=== PATIENT | male | born 1950 | race Caucasian/White ===

== ENCOUNTER 2023-04-14 17:18 | Inpatient (IN) | payer MEDICARE, OTHER ==
[~2023-04-14] VITALS: Ht 170.2 cm; Wt 82.3 kg
[2023-04-14] MEDS ORDERED: ISOVUE-370 76% 100ML VIAL As Ordered ONE (17:27)
[2023-04-14 17:53] LABS: BASO % 0.3 % (0.0-1.0); EOS # 0.1 10^3/uL (0.0-0.5); EOS % 1.2 % (0.0-3.0); HEMATOCRIT 42.3 % (42.0-52.0); HEMOGLOBIN 14.6 g/dl (13.5-17.5); LYMPH # 0.9 10^3/uL (1.5-5.0); LYMPH % 15.7 % (24.0-44.0); MEAN CORPUSCULAR HEMOGLOBIN 30.7 pg (27.0-33.0); MEAN CORPUSCULAR HGB CONC 34.5 g/dl (32.0-36.5); MEAN CORPUSCULAR VOLUME 89.1 fl (80.0-96.0); MONO # 0.5 10^3/uL (0.0-0.8); MONO % 8.4 % (2.0-8.0); NEUTROPHILS # 4.3 10^3/uL (1.5-8.5); NEUTROPHILS % 74.1 % (36.0-66.0); PLATELET COUNT, AUTOMATED 151 10^3/uL (150-450); RED BLOOD COUNT 4.75 10^6/uL (4.30-6.10); WHITE BLOOD COUNT 5.9 10^3/uL (4.0-10.0)
[2023-04-14 18:04] LABS: INR 0.94; PROTHROMBIN TIME 12.8 SECONDS (12.5-14.5)
[2023-04-14] MEDS ORDERED: TENECTEPLASE 50 MG KIT (TNKase) IVP ONE (18:20)
[2023-04-14 18:21] LABS: CK-MB VALUE MASS 1.1 NG/ML (<3.6)
[2023-04-14 18:22] LABS: CALCIUM LEVEL 9.1 MG/DL (8.3-10.6); CREATININE FOR GFR 1.4 MG/DL (0.70-1.30); GLOMERULAR FILTRATION RATE 52.9 (>42)
[2023-04-14 18:26] LABS: MB/CK RELATIVE INDEX 1.13 (< OR =4)
[2023-04-14] MEDS ORDERED: SODIUM CHLORIDE 0.9% INJ 10 ML SYR IV ONE ×2 (18:30)
[2023-04-14 18:34] LABS: RSV AMPLIFICATION NEGATIVE (NEGATIVE)
[2023-04-14] MEDS ORDERED: ATOR40TA75 PO (18:43)
[2023-04-14] MEDS ORDERED: AMLO1TAB25 PO (18:43)
[2023-04-14] MEDS ORDERED: APPL300T4 PO (18:43)
[2023-04-14] MEDS ORDERED: CARV3.12 PO (18:43)
[2023-04-14] MEDS ORDERED: LEVO100T5 PO (18:43)
[2023-04-14] MEDS ORDERED: LISI10TA22 PO (18:43)
[2023-04-14] MEDS ORDERED: BIOT1CAP2 PO (18:43)
[2023-04-14] MEDS ORDERED: HOME MED LIST COMPLETE! XX SCH (20:35)
[2023-04-14] MEDS: D5W/0.9% SODIUM CHLORIDE 1,000 ML IV SCH (20:35)
[2023-04-14 23:10] VITALS: BP 157/79; TEMP 101.5; O2SAT 95
[2023-04-14 23:30] VITALS: BP 144/76; O2SAT 94
[2023-04-14] MEDS: ATORVASTATIN 20 MG TAB PO SCH (23:42)
[2023-04-14 23:45] VITALS: BP 141/74; O2SAT 95
[2023-04-15] VITALS (31 sets, daily range): BP systolic 106–171; BP diastolic 53–79; TEMP 97.9–99.5; O2SAT 93–98
[2023-04-15] MEDS ORDERED: ACETAMINOPHEN 1000MG 100ML IV BAG IV ONE (02:00)
[2023-04-15 05:03] LABS: HEMOGLOBIN A1c 5.1 % (4.0-6.0)
[2023-04-15 05:11] LABS: INR 0.99; PROTHROMBIN TIME 13.3 SECONDS (12.5-14.5)
[2023-04-15 05:29] LABS: CHOLESTEROL RISK RATIO 4.05 (<5); HDL CHOLESTEROL 25.4 MG/DL (>40); LDL CHOLESTEROL 55.4 MG/DL (<100); NON-HDL-C 77.6 MG/DL
[2023-04-15] MEDS: ATORVASTATIN 20 MG TAB PO SCH ×2 (06:05→20:41)
[2023-04-15] MEDS: LEVOTHYROXINE 100MCG TABLET (0.1MG) PO SCH (06:05)
[2023-04-15] MEDS: D5W/0.9% SODIUM CHLORIDE 1,000 ML IV SCH ×2 (09:55→18:14)
[2023-04-16] VITALS (7 sets, daily range): BP systolic 129–158; BP diastolic 63–86; TEMP 97.7–98.5; O2SAT 95–97
[2023-04-16] MEDS: LEVOTHYROXINE 100MCG TABLET (0.1MG) PO SCH (05:29)
[2023-04-16] MEDS: ASPIRIN 81MG ENTERIC TABLET PO SCH (08:40)
[2023-04-16 08:52] LABS: HEMATOCRIT 40.4 % (42.0-52.0); HEMOGLOBIN 13.7 g/dl (13.5-17.5); MEAN CORPUSCULAR HEMOGLOBIN 30.9 pg (27.0-33.0); MEAN CORPUSCULAR HGB CONC 33.9 g/dl (32.0-36.5); MEAN CORPUSCULAR VOLUME 91.2 fl (80.0-96.0); PLATELET COUNT, AUTOMATED 150 10^3/uL (150-450); RED BLOOD COUNT 4.43 10^6/uL (4.30-6.10); WHITE BLOOD COUNT 4.9 10^3/uL (4.0-10.0)
[2023-04-16] MEDS: NS 1,000 ML IV SCH ×2 (09:10→19:39)
[2023-04-16 09:13] LABS: BLOOD UREA NITROGEN 22 MG/DL (9-23); CALCIUM LEVEL 9.2 MG/DL (8.3-10.6); CARBON DIOXIDE LEVEL 25 MMOL/L (20-31); CHLORIDE LEVEL 108 MMOL/L (98-107); CREATININE FOR GFR 1.25 MG/DL (0.70-1.30); GLOMERULAR FILTRATION RATE > 60.0 (>42); GLUCOSE, FASTING 104 MG/DL (74-106); POTASSIUM SERUM 3.9 MMOL/L (3.5-5.1); SODIUM LEVEL 141 MMOL/L (136-145)
[2023-04-16] MEDS: ATORVASTATIN 20 MG TAB PO SCH (20:36)
[2023-04-17] VITALS: BP 137/60; TEMP 98.5; O2SAT 96
[2023-04-17 04:00] VITALS: BP 112/59; TEMP 98.6; O2SAT 97
[2023-04-17] MEDS: LEVOTHYROXINE 100MCG TABLET (0.1MG) PO SCH (05:54)
[2023-04-17] MEDS: ASPIRIN 81MG ENTERIC TABLET PO SCH (08:11)
[2023-04-17 08:14] VITALS: BP 135/70; TEMP 98; O2SAT 97
[2023-04-17] MEDS ORDERED: ASPI81TAEC PO (10:44)
[2023-04-17] MEDS ORDERED: ATOR80TA59 PO (10:44)
== END 2023-04-17 12:15 | disposition home or self-care (01) | DRG 63 ==
LOC: M ED 17:18 → M ED INP 19:19 → ENRESERV 20:31 → M ICU 23:10
PROVIDERS: ADMIT Internal Medicine; ATTEND Internal Medicine
PROC: 3E03317 Introduction of Other Thrombolytic into Peripheral Vein, Percutaneous Approach (ICD-10-PCS; principal; 2023-04-14)
PROC: B246ZZZ Ultrasonography of Right and Left Heart (ICD-10-PCS; 2023-04-16)
DX: I63.9 Cerebral infarction, unspecified (principal); R29.810 Facial weakness; R47.01 Aphasia; I10 Essential (primary) hypertension; E78.5 Hyperlipidemia, unspecified; E03.9 Hypothyroidism, unspecified